=== PATIENT | female | born 1950 | race American Indian/Alaskan Native ===

== ENCOUNTER 2019-08-18 22:27 | Emergency (ER) | payer MEDICARE ==
[~2019-08-18 22:27] MED LIST: ADRENALIN ONE
--- NOTE | 2019-08-18 22:49 | Emergency Department Report ---
ED CPR HPI - General Stated Complaint: STEMI/CARDIAC ARREST Time Seen by Provider: 08/18/19 22:27 Source: EMS Mode of arrival: Stretcher Limitations: Altered Mental Status, Physical Limitation - History of Present Illness Initial Comments: Patient is 69-year-old female presents to the ER on a cardiac arrest. Patient initially called EMS for chest pain. Report received from EMS. EMS states initial call was for chest pain. EMS states the patient became bradycardic and hypotensive and then went into a cardiac arrest. CPR was initiated by EMS. Patient was provided ventilation with a BVM. Patient was given aspirin orally by EMS. MD Complaint: stopped breathing Place: home AED Applied by Bystander/Button Maker: Yes Shock Advised: No ROSC in the Field: No Associated Injuries: No Associated Symptoms: chest pain Treatments Prior to Arrival: BMV, chest compressions, epinephrine mgs # ED Review of Systems ROS: Stated complaint: STEMI/CARDIAC ARREST Other details as noted in HPI Comment: Unobtainable due to pts medical conditions ED Past Medical Hx - Past Medical History Previous Medical History?: Yes Hx Hypertension: Yes Hx Heart Attack/AMI: Yes Hx Congestive Heart Failure: Yes - Surgical History Past Surgical History?: No - Family History Family history: no significant - Social History Smoking Status: Unknown if ever smoked Substance Use Type: Other ED Physical Exam - General Limitations: Altered Mental Status, Physical Limitation General appearance: obtunded - Head Head exam: Present: atraumatic, normocephalic - Eye Eye exam: Present: other ( Pupils fixed and dilated) - Neck Neck exam: Present: normal inspection - Cardiovascular Cardiovascular Exam: Present: other - GI/Abdominal GI/Abdominal exam: Present: soft - Rectal Rectal exam: Present: deferred - Extremities Exam Extremities exam: Present: normal inspection - Neurological Exam Neurological exam: Present: altered - Skin Skin exam: Present: warm, dry, intact, normal color. Absent: rash ED Course - Reevaluation(s) Reevaluation #1: Initial EKG received via EMS. Initial EKG shows ST elevation. STEMI team and lab systems analyst activity. Dr. Breen made aware of patient 08/18/19 22:16 Reevaluation #2: Initial evaluation done. Patient via bag by EMS. Report received from EMS. Patient intubated immediately. CPR continued. 08/18/19 22:25 Reevaluation #3: Resuscitation efforts discontinued due to no signs of life. Ultrasound use and no cardiac motion noted. Patient PEA on the monitor. No pulse noted. Family meeting will be done and family support will be given. See code note. 08/18/19 22:39 Reevaluation #4: Family meeting done. Family support given. 08/18/19 22:56 - Intubation Time Out Performed: Yes Sedative: none Laryngoscope: fiberoptic video scope Size: 4 Assist Device Used: fiberoptic device ET Tube Size: 7.5 Tube Secured Depth (cm): 22 Tube Secured Location: teeth Tube Placement Confirmation: visualized tube passing t, equal breath sounds bilat, no breath sounds over epi, confirmation by capnometr Patient Tolerated Procedure: well, no complications Intubation Complications: none ED Medical Decision Making - EKG Data -: EKG Interpreted by Me EKG shows normal: sinus rhythm - EKG Data Interpretation: acute DE, other (EKG from EMS reviewed and placed on chart.) - Medical Decision Making is a 69-year-old female that presents emergency room with cardiac arrest. Patient's initial EMS call was for chest pain. EMS checked transmitted EKG to us electronically and the EKG showed ST elevation in many leads. Cardiac cath team activated. emissions testing technician, Dr. Breen he contacted. Prior to arrival the patient became bradycardic and hypotensive and eventually went into a cardiac arrest. CPR started by EMS. Care transferred from EMS to us. CPR continued and patient was intubated. See procedure note. See code note. Code ran in accordance with ACLS guidelines. Resuscitation efforts were terminated due to no signs of life. Ultrasound was used to verify no cardiac motion. Patient was given multiple rounds of medications to no avail. Family meeting done. Family support given. - Differential Diagnosis cardiac arrest. STEMI. Critical Care Time: Yes Critical care time in (mins) excluding proc time.: 35 Critical care attestation.: If time is entered above; I have spent that time in minutes in the direct care of this critically ill patient, excluding procedure time. Critical Care Time: 35 minutes ED Disposition Clinical Impression: Cardiac arrest STEMI (ST elevation myocardial infarction) Qualifiers: Involved coronary artery: unspecified coronary artery Qualified Code(s): I21.3 - ST elevation (STEMI) myocardial infarction of unspecified site Disposition: DC-20 Is pt being admited?: No Does the pt Need Aspirin: No Condition: Critical Referrals: [facility], [place] [Primary Care Provider] - 3-5 Days Time of Disposition: 23:52
== END 2019-08-19 01:00 ==
LOC: ED 22:27
DX: I46.9 Cardiac arrest, cause unspecified (principal); I21.3 ST elevation (STEMI) myocardial infarction of unspecified site; I11.0 Hypertensive heart disease with heart failure; I50.9 Heart failure, unspecified; I25.2 Old myocardial infarction
CPT/HCPCS: 31500; 92950; 99291; J0171